=== PATIENT | female | born 1980 | race Caucasian/White ===

== ENCOUNTER → 2017-02-06 | Outpatient (CLI) | payer BC ==
[~2017-02-06] MED LIST: ACET325T51 PO; EMPA10TA PO; FLUT9.9S EA NOSTRIL; GLIP5TAB11 PO; IBUP-1724 PO; IOHEXOL 180 MG/ML 20ml INJECTION ONE; LIDOCAINE 1% (10mg/ml) 5ml VIAL ONE; LISI-625 PO; METF10002 PO; MethylPREDNISolone ACETATE 40mg/1ml ONE
--- NOTE | 2017-02-14 08:30 | DI ---
Indication:ITS.REASON: M51.26 BULGE; M54.16 RADICULOPATHY Procedure:EPIDURAL INJ.SPINE W FLUO CATH LUMBAR EPIDURAL INJECTION: The patient has low back and radicular pain. The patient has had a previous epidural that provided excellent relief. The details of the procedure, including the benefits, risks, and alternatives were explained to the patient. All of their questions were answered. They stated that they understood and wished to proceed. Informed consent was then obtained. A pre-procedural timeout was performed to confirm the correct patient and procedure. Utilizing aseptic technique, local lidocaine anesthetic, and fluoroscopic guidance throughout, a 22-gauge spinal needle was directed into the lumbar epidural space via an interlaminar approach at the L5-S1 level. Contrast was injected to assure proper positioning of the needle tip. A fluoroscopic image was then taken and archived. Subsequently, 120 mg Depo-Medrol was injected into the epidural space. The patient tolerated the procedure well. IMPRESSION: Successful lumbar epidural steroid injection. Fluoroscopy dose: 43.75 mGy (Cumulative air kerma) Brandon Zhong RPA/GAURANG performed this under my personal supervision. .
== END ==
LOC: IMA 13:01
PROVIDERS: ATTEND Family Medicine Sports Medicine
DX: M51.26 Other intervertebral disc displacement, lumbar region (principal); M54.16 Radiculopathy, lumbar region
CPT/HCPCS: 62323; J1030; Q9965

== ENCOUNTER → 2017-03-07 | Outpatient (CLI) | payer BC ==
[~2017-03-07] MED LIST changes: +GADOBUTROL 10mMol/10ml INJECTION IV ONE; +IOTHALAMATE MEGLUMINE 60% (600mg/ml) 30ml INJ IV ONE; +NORMAL SALINE 50 ML IV ONE
--- NOTE | 2017-03-07 10:18 | DI ---
Indication: ITS.REASON: M25.551 PAIN IN RIGHT HIP PROCEDURE: MRI HIP RIGHT W/ CONTRAST: Encounter: Initial Comparison: None Technique: Multiplanar multisequence MR imaging of the right hip was performed after the administration of intra-articular contrast. The arthrogram injection is described in a separate procedural report. Findings: Mild motion artifact on some of the sequences. No acute fracture identified. Bone marrow signal intensity is normal. The ligamentum teres is intact the hamstring origins are normal. Muscular signal intensity is normal. No contrast in the iliopsoas bursa. No fluid in the greater trochanteric bursa. The soft tissues of the right hemipelvis are grossly normal. No evidence of a labral tear. Impression: Negative exam. .
--- NOTE | 2017-03-07 14:39 | DI ---
Indication:ITS.REASON: M25.551 PAIN IN RIGHT HIP; M54.16 RADICULOPATHY, LUMBAR REGION Procedure:EPIDURAL INJ.SPINE W FLUO CATH LUMBAR EPIDURAL INJECTION: The patient has low back and radicular pain. The patient has had a previous epidural that provided moderate relief. The details of the procedure, including the benefits, risks, and alternatives were explained to the patient. All of their questions were answered. They stated that they understood and wished to proceed. Informed consent was then obtained. A pre-procedural timeout was performed to confirm the correct patient and procedure. Utilizing aseptic technique, local lidocaine anesthetic, and fluoroscopic guidance throughout, a 22-gauge spinal needle was directed into the lumbar epidural space via an interlaminar approach at the L5-S1 level. Contrast was injected to assure proper positioning of the needle tip. A fluoroscopic image was then taken and archived. Subsequently, 120 mg Depo-Medrol was injected into the epidural space. The patient tolerated the procedure well. IMPRESSION: Successful lumbar epidural steroid injection. Fluoroscopy dose: 13.47 mGy (Cumulative air kerma) Brandon Zhong RPA/GAURANG performed this under my personal supervision. .
--- NOTE | 2017-03-07 14:39 | DI ---
INDICATION: ITS.REASON: M25.551 PAIN IN RIGHT HIP ARTHROGRAM HIP RT W/FLUORO: HIP INJECTION FOR MRI ARTHROGRAM: The procedure including the benefits, risks, and alternatives were explained in detail to the patient. All of their questions were answered. They stated that they understood and wished to proceed. Informed consent was obtained. A pre-procedural timeout was done to verify the patient and proper procedure. Using sterile technique, local Xylocaine anesthesia, and fluoroscopic guidance, a 22-gauge spinal needle was advanced into the right hip. A small amount of x-ray contrast was injected to confirm proper intra-articular position of the needle tip. A fluoroscopic image was then taken and archived. 8 cc of dilute gadolinium were slowly instilled within the joint of the right hip. The needle was removed. The procedure was completed without complication. Following this, the patient was taken by wheelchair to MRI for her scan. Please see separate MRI report. Impression: Technically successful right intra-articular hip joint injection for a MRI arthrogram. Fluoroscopy dose: 37.44 mGy (Cumulative air kerma) Brandon Zhong RPA/GAURANG performed this under my personal supervision .
== END ==
LOC: IMA 07:32
PROVIDERS: ATTEND Family Medicine Sports Medicine
DX: M25.551 Pain in right hip (principal); M51.26 Other intervertebral disc displacement, lumbar region; M54.16 Radiculopathy, lumbar region
CPT/HCPCS: 27093; 62323; 73722; 77002; A9585; J1030; J7050; Q9961; Q9965